=== PATIENT | female | born 1970 ===

== ENCOUNTER 2021-04-30 02:07 | Emergency (ER) | payer SELFPAY ==
[2021-04-30 03:01] LABS: Basophils # (Auto) 0.1 K/mm3 (0.0-0.1); Basophils % (Auto) 0.5 % (0.0-1.8); Eosinophils # (Auto) 0.1 K/mm3 (0.0-0.4); Eosinophils % (Auto) 0.4 % (0.0-4.3); Hematocrit 29.2 % (30.3-42.9); Lymphocytes # (Auto) 1.1 K/mm3 (1.2-5.4); Lymphocytes % (Auto) 8.2 % (13.4-35.0); Mean Corpuscular HGB Conc 31 % (30-34); Monocytes # (Auto) 0.6 K/mm3 (0.0-0.8); Monocytes % (Auto) 4.1 % (0.0-7.3); Platelet Count 344 K/mm3 (140-440); Red Blood Count 4.23 M/mm3 (3.65-5.03); Red Cell Distribution Width 18.8 % (13.2-15.2)
[2021-04-30 03:03] LABS: Mean Corpuscular Volume 69 fl (79-97)
[2021-04-30 03:05] LABS: Bacteria,Urine 1+ /HPF (Negative); Bilirubin,Urine NEG (Negative); Blood,Urine LG (Negative); Color,Urine Yellow (Yellow); Mucus,Urine FEW /HPF; Urobilinogen,Urine < 2.0 mg/dL (<2.0)
[2021-04-30 03:07] LABS: RBC,Urine > 182.0 /HPF (0.0-6.0)
[2021-04-30] MEDS ORDERED: SODIUM CHLORIDE 0.9% 1000 ML 1,000 ML IV ONE (03:10)
--- NOTE | 2021-04-30 03:12 | Emergency Department Report ---
ED General Adult HPI - General Chief complaint: Abdominal Pain Stated complaint: SEVERE PERIOD CRAMPS Time Seen by Provider: 04/30/21 02:49 Source: patient Mode of arrival: Ambulatory Limitations: No Limitations - History of Present Illness Initial comments: 50-year-old female patient with history of ruptured ectopic presents to the emergency department with complaints of diffuse lower abdominal pain with associated nausea and vomiting starting tonight. Patient states her menstrual cycle began last night. Her last menstrual cycle was 3 weeks ago. She is not on contraceptive medication. She does not usually experience pain or vomiting with her menstrual cycles. She tried to take ibuprofen prior to arrival, but was unable to keep down the medication. Denies fever, chills, diarrhea, constipation, painful urination. Denies all other complaints at this time. - Related Data Previous Rx's Medication Instructions Recorded Last Taken Type Dicyclomine [Bentyl] 20 mg PO QID #20 tablet 04/30/21 Unknown Rx Ondansetron [Zofran Odt] 4 mg PO Q4H #20 tab.rapdis 04/30/21 Unknown Rx Allergies Allergy/AdvReac Type Severity Reaction Status Date / Time No Known Allergies Allergy Unverified 04/30/21 02:30 ED Review of Systems ROS: Stated complaint: SEVERE PERIOD CRAMPS Other details as noted in HPI Other: GENERAL: Negative for fever, chills, weight change, anorexia, fatigue. ENT: Negative for ear pain, difficulty hearing, sore throat, nasal congestion, epistaxis. CARDIOVASCULAR: Negative for chest pain, palpitations, lower extremity swelling. PULMONARY: Negative for cough, dyspnea, wheezing, orthopnea, cyanosis. GASTROINTESTINAL: Positive for abdominal pain, nausea, vomiting. MUSCULOSKELETAL: Negative for joint pain, joint swelling, myalgias, back pain, neck pain. NEUROLOGICAL: Negative for headache, seizure, syncope, paresthesias, weakness. INTEGUMENTARY: Negative for erythema, rash, diaphoresis, laceration, ecchymosis. HEMATOLOGICAL: Negative for hemoptysis, hematemesis, hematochezia, hematuria. PSYCHIATRIC: Negative for hallucinations, suicidal ideation, homicidal ideation, anxiety, depression. ED Past Medical Hx - Past Medical History Previous Medical History?: No - Surgical History Past Surgical History?: Yes Additional Surgical History: Ectopic - Social History Smoking Status: Never Smoker Substance Use Type: None - Medications Home Medications: Home Medications Medication Instructions Recorded Confirmed Last Taken Type Dicyclomine [Bentyl] 20 mg PO QID #20 tablet 04/30/21 Unknown Rx Ondansetron [Zofran Odt] 4 mg PO Q4H #20 tab.rapdis 04/30/21 Unknown Rx ED Physical Exam - General Limitations: No Limitations - Other Other exam information: General: Awake and alert. Appears uncomfortable. Head: Atraumatic, normocephalic. Eyes: EOMI. Pupils are equal and round. Normal sclera and conjunctiva. ENT: Oral mucosa is moist. Normal pharyngeal exam. Neck: Supple. No lymphadenopathy. Pulmonary: No respiratory distress. Clear to auscultation bilaterally. Cardiac: Regular rate and rhythm. Pulses are palpable and equal bilaterally. No lower extremity cyanosis or edema. Skin: Warm and dry. No rashes. Abdomen: Soft, non-tender, non-protuberant. Diffuse lower abdominal tenderness without guarding, rigidity, or rebound. Bowel sounds are normal. No organomegaly or masses noted. Back: Normal alignment. No CVA tenderness. Extremities: Symmetrical. Full range of motion intact. Neurological: Alert and oriented, appropriately interactive, no focal deficits. Psych: Cooperative. Appropriate mood and affect. Speech is evenly metered. Thoughts are logically construed. ED Course Vital Signs 04/30/21 04/30/21 04/30/21 02:13 03:32 04:02 Temperature 97.7 F Pulse Rate 79 Respiratory 18 16 16 Rate Blood Pressure 154/82 O2 Sat by Pulse 100 Oximetry ED Medical Decision Making - Lab Data Result diagrams: 04/30/21 02:38 04/30/21 02:38 - Radiology Data [address] [address] Cat Scan Report Signed Patient: MARY VIVAS MR#: [id number] : 1970 Acct:[id number] Age/Sex: 50 / F ADM Date: 04/30/21 Loc: ED Attending Dr: Ordering Physician: TAMMIE POTTER Date of Service: 04/30/21 Procedure(s): CT abdomen pelvis w con Accession Number(s): [id number] cc: TAMMIE POTTER CT abdomen pelvis w con INDICATION / CLINICAL INFORMATION: lower abd pain/vomiting/elevated WBC. TECHNIQUE: Axial CT images were obtained through the abdomen and pelvis after IV contrast. All CT scans at this location are performed using CT dose reduction for ALARA by means of automated exposure control. COMPARISON: Same-day pelvic ultrasound. FINDINGS: LOWER CHEST: No significant abnormality LIVER: No significant abnormality GALLBLADDER/BILIARY TREE: No significant abnormality PANCREAS: No significant abnormality SPLEEN: No significant abnormality ADRENALS: No significant abnormality KIDNEYS / URETER: No significant abnormality URINARY BLADDER: No significant abnormality REPRODUCTIVE ORGANS: Enlarged and heterogeneous uterus, most likely reflects uterine fibroids. No suspicious adnexal mass identified. Dominant follicle in the left adnexa again seen. STOMACH / BOWEL: Stomach is unremarkable. Scattered nodular fluid-filled small bowel with mucosal enhancement of the left abdomen suggesting enteritis. There is no evidence of bowel obstruction. Colon is unremarkable. The appendix is normal in caliber. LYMPH NODES: No significant adenopathy. VASCULATURE: No significant abnormality. OTHER: Small volume free fluid in the pelvis is likely physiologic. SKELETAL SYSTEM: No acute osseous findings. IMPRESSION: 1. Scattered nondilated fluid-filled small bowel with mucosal enhancement and left abdomen, suggestive of enteritis. 2. Otherwise, no acute abnormality. 3. Enlarged and heterogeneous uterus, likely reflecting fibroid disease. Small volume free fluid in the pelvis likely physiologic. 4. Other chronic and incidental findings as above. Signer Name: Fei Rubin MD Signed: 04/30/2021 6:01 AM Workstation Name: [id number] Transcribed By: Dictated By: FEI RUBIN MD Electronically Authenticated By: FEI RUBIN MD Signed Date/Time: 04/30/21600 DD/ 0557 TD/TT: [address] [address] Ultrasound Report Signed Patient: MARY VIVAS MR#: [id number] : 1970 Acct:[id number] Age/Sex: 50 / F ADM Date: 04/30/21 Loc: ED Attending Dr: Ordering Physician: TAMMIE POTTER Date of Service: 04/30/21 Procedure(s): US transvaginal Accession Number(s): [id number] cc: TAMMIE POTTER ULTRASOUND PELVIS INDICATION / CLINICAL INFORMATION: Lower abdominal pain/bleeding. TECHNIQUE: Transabdominal. Duplex Color Doppler used: Yes. COMPARISON: None available FINDINGS: UTERUS: The uterus measures 11.7 x 5.8 x 6.6 cm. The uterus appears he terogeneous, may reflect fibroid disease. The endometrial stripe is not seen. Nabothian cysts are p resent. RIGHT ADNEXA: No significant ovarian cyst or mass. Normal color Doppler blood flow. LEFT ADNEXA: 2.1 cm dominant follicle/simple cyst in the left ovary. No suspicious mass. Normal color Doppler blood flow. URINARY BLADDER: No significant abnormality. FREE FLUID: Trace fluid in the cul-de-sac ADDITIONAL FINDINGS: None. IMPRESSION: 1. Enlarged and heterogeneous uterus may reflect fibroid disease. The endometrial stripe is not well seen. 2. Otherwise, no significant sonographic abnormality of the pelvis. Signer Name: Fei Rubin MD Signed: 04/30/2021 4:20 AM Workstation Name: [id number] Transcribed By: IDALMIS Dictated By: FEI RUBIN MD Electronically Authenticated By: FEI RUBIN MD Signed Date/Time: 04/30/21419 DD/ TD/TT: - Medical Decision Making Differential diagnosis including but not limited to: appendicitis, ovarian cyst/torsion, ectopic , uterine rupture, diverticulitis, urinary tract infection, pyelonephritis, pelvic inflammatory disease On reevaluation, patient is stable and symptoms have improved. Repeat abdominal exam is benign. No further vomiting in the emergency department. Pain is controlled. test is negative. Transvaginal ultrasound obtained due to clinical concern for ovarian torsion given patient's sudden onset of pain and vaginal bleeding. Sonographic findings suggestive of uterine fibroids. CT of the abdomen/pelvis obtained for further evaluation in the setting of continued abdominal pain with vomiting and leukocytosis. In addition to the previously documented ultrasound findings, CT of the abdomen/pelvis also showed evidence of enteritis. No clinical indication for further diagnostic work-up on an emergent basis at this time. Patient will be discharged home with appropriate symptomat ic treatment and referred to both primary care provider and gynecology for close outpatient follow-up. Patient expressed understanding and is agreeable to plan of care. Strict return precautions provided. Repeat exam is unremarkable and benign. History, exam, diagnostic testing, and current condition do not suggest worrisome pathology to warrant further testing, continued ED treatment, admission, or surgical evaluation at this point. Given the low probability of a significant medical illness, it would be more likely to result in harm than benefit to perform further testing at this stage. Discussed findings, presumptive diagnosis, need for follow-up and specific signs/symptoms that should prompt immediate return to the emergency department. Instructions were explained in detail to the patient in addition to giving written discharge information. Patient expressed understanding and was given the opportunity to ask questions, all of which were satisfactorily answered prior to discharge home. Critical care attestation.: If time is entered above; I have spent that time in minutes in the direct care of this critically ill patient, excluding procedure time. ED Disposition Clinical Impression: Enteritis Uterine fibroid Qualifiers: Uterine leiomyoma location: unspecified location Qualified Code(s): D25.9 - Leiomyoma of uterus, unspecified Disposition: TO HOME OR SELFCARE Is pt being admited?: No Does the pt Need Aspirin: No Condition: Stable Instructions: Abdominal Pain (ED), Uterine Fibroids, [id number], Viral Gastroenteritis, Adult, [id number] Additional Instructions: Take Tylenol every 4 hours as needed for pain. Take Bentyl as directed for intestinal discomfort. Take Zofran as needed for nausea/vomiting. Rest. Drink plenty of fluids. Wash hands frequently to prevent disease transmission. Do not share food or drinks with others. 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 Call tomorrow to schedule an appointment. See referral information below. Return to the emergency department immediately for new or worsening symptoms. Prescriptions: Dicyclomine [Bentyl] 20 mg PO QID #20 tablet Ondansetron [Zofran Odt] 4 mg PO Q4H #20 tab.rapdis Referrals: ROMAIN DO MD [Staff Physician] - 3-5 Days [facility] [Provider Group] - 3-5 Days [facility] [Provider Group] - 3-5 Days [facility] [Provider Group] - 3-5 Days Forms: Work/School Release Form(ED) Time of Disposition: 06:18
[2021-04-30 03:25] LABS: Alanine Aminotransferase 10 units/L (7-56); Albumin 4.7 g/dL (3.9-5); Blood Urea Nitrogen 15 mg/dL (7-17); Calcium 9.3 mg/dL (8.4-10.2); Hemolysis Index 0
[2021-04-30] MEDS ORDERED: ONDANSETRON 4 MG/2 ML INJ IV ONE (03:25)
[2021-04-30] MEDS ORDERED: MORPHINE 4 MG/1 ML INJ IV ONE (03:25)
[2021-04-30 03:31] LABS: BUN/Creatinine Ratio 30
--- NOTE | 2021-04-30 04:24 | Ultrasound Report ---
ULTRASOUND PELVIS INDICATION / CLINICAL INFORMATION: Lower abdominal pain/bleeding. TECHNIQUE: Transabdominal. Duplex Color Doppler used: Yes. COMPARISON: None available FINDINGS: UTERUS: The uterus measures 11.7 x 5.8 x 6.6 cm. The uterus appears heterogeneous, may reflect fibro id disease. The endometrial stripe is not seen. Nabothian cysts are present. RIGHT ADNEXA: No significant ovarian cyst or mass. Normal color Doppler blood flow. LEFT ADNEXA: 2.1 cm dominant follicle/simple cyst in the left ovary. No suspicious mass. Normal color Doppler blood flow. URINARY BLADDER: No significant abnormality. FREE FLUID: Trace fluid in the cul-de-sac ADDITIONAL FINDINGS: None. IMPRESSION: 1. Enlarged and heterogeneous uterus may reflect fibroid disease. The endometrial stripe is not well seen. 2. Otherwise, no significant sonographic abnormality of the pelvis. Signer Name: Robin Rubin MD Signed: 04/30/2021 4:20 AM Workstation Name: [id number]
--- NOTE | 2021-04-30 06:06 | Cat Scan Report ---
CT abdomen pelvis w con INDICATION / CLINICAL INFORMATION: lower abd pain/vomiting/elevated WBC. TECHNIQUE: Axial CT images were obtained through the abdomen and pelvis after IV contrast. All CT sc ans at this location are performed using CT dose reduction for ALARA by means of automated exposure c ontrol. COMPARISON: Same-day pelvic ultrasound. FINDINGS: LOWER CHEST: No significant abnormality LIVER: No significant abnormality GALLBLADDER/BILIARY TREE: No significant abnormality PANCREAS: No significant abnormality SPLEEN: No significant abnormality ADRENALS: No significant abnormality KIDNEYS / URETER: No significant abnormality URINARY BLADDER: No significant abnormality REPRODUCTIVE ORGANS: Enlarged and heterogeneous uterus, most likely reflects uterine fibroids. No yolanda picious adnexal mass identified. Dominant follicle in the left adnexa again seen. STOMACH / BOWEL: Stomach is unremarkable. Scattered nodular fluid-filled small bowel with mucosal enh ancement of the left abdomen suggesting enteritis. There is no evidence of bowel obstruction. Colon i s unremarkable. The appendix is normal in caliber. LYMPH NODES: No significant adenopathy. VASCULATURE: No significant abnormality. OTHER: Small volume free fluid in the pelvis is likely physiologic. SKELETAL SYSTEM: No acute osseous findings. IMPRESSION: 1. Scattered nondilated fluid-filled small bowel with mucosal enhancement and left abdomen, suggestiv e of enteritis. 2. Otherwise, no acute abnormality. 3. Enlarged and heterogeneous uterus, likely reflecting fibroid disease. Small volume free fluid in t he pelvis likely physiologic. 4. Other chronic and incidental findings as above. Signer Name: Robin Rubin MD Signed: 04/30/2021 6:01 AM Workstation Name: [id number]
[2021-04-30 06:45] VITALS: BP 168/86
== END 2021-04-30 06:46 | disposition home or self-care (01) ==
LOC: ED 02:07
DX: K52.9 Noninfective gastroenteritis and colitis, unspecified (principal); D25.9 Leiomyoma of uterus, unspecified; Z79.899 Other long term (current) drug therapy
CPT/HCPCS: 36415; 74177; 76830; 80053; 81001; 83690; 84703; 85025; 87086; 96361; 96374; 96375; 99284; J2270; J2405; J7030; Q9967